=== PATIENT | female | born 1975 | race Caucasian/White ===

== ENCOUNTER 2023-06-25 12:11 | Emergency (ER) | payer MEDICAID, OTHER ==
[~2023-06-25] VITALS: Ht 167.6 cm; Wt 84.0 kg
[2023-06-25] MEDS: SODIUM CHLORIDE 0.9% 1,000 ML IV ONE (12:30)
[2023-06-25 13:35] LABS: Basophils # (auto) 0 10 ^3/uL (0-0.2); Basophils % (auto) 0.3 % (0.0-2.0); Eosinophils # (auto) 0.1 10 ^3/uL (0-0.8); Eosinophils % (auto) 0.5 % (0.0-7.0); Hematocrit 45.2 % (36.0-46.0); Hemoglobin 14.9 g/dL (12.2-16.2); Lymphocytes # (auto) 1.3 10 ^3/uL (0.4-5.4); Lymphocytes % (auto) 10.6 % (10.0-50.0); Mean Corpuscular Hemoglobin 27.8 pg (28.0-32.0); Mean Corpuscular Hgb Conc. 33.1 g/dL (32.0-36.0); Mean Corpuscular Volume 84.1 fL (80.0-100.0); Monocytes # (auto) 0.6 10 ^3/uL (0-1.3); Monocytes % (auto) 4.5 % (0.0-12.0); Neutrophils # (auto) 10.6 10 ^3/uL (1.6-8.6); Neutrophils % (auto) 84.1 % (37.0-80.0); Red Blood Cells 5.38 10^6/uL (4.0-5.20); White Blood Cell 12.6 10^3/uL (4.4-10.8)
[2023-06-25 13:45] VITALS: PULSE 131; RESP 16; O2SAT 93
[2023-06-25 13:51] VITALS: TEMP 98.9
[2023-06-25 13:58] LABS: Chloride 107 mmol/L (98-107); Sodium 140 mmol/L (136-145)
[2023-06-25 13:59] LABS: Anion Gap 8 (5-15); Calcium 9.6 mg/dL (8.7-10.4); Carbon Dioxide 25 mmol/L (20-30)
[2023-06-25 14:04] LABS: BUN/Creatinine Ratio 18.4 (10.0-20.0); Blood Urea Nitrogen 16 mg/dL (9-23); Glucose 165 mg/dL (74-106)
[2023-06-25 16:18] LABS: Blood Alcohol < 3.0 mg/dL (<10)
[2023-06-25 17:30] VITALS: BP 124/76; PULSE 107; RESP 22; O2SAT 96
== END 2023-06-25 17:45 | disposition home or self-care (01) ==
LOC: ER 12:11 → EDBD 12:11 → ER 17:45
DX: F15.10 Other stimulant abuse, uncomplicated (principal); R00.2 Palpitations; Z98.890 Other specified postprocedural states
CPT/HCPCS: 36415; 80048; 80320; 85025; 93005; 96360; 96361; 99284; J7030